=== PATIENT | female | born 1995 | race Caucasian/White ===

== ENCOUNTER 2017-03-06 21:17 | Emergency (ER) | payer MEDICAID ==
[~2017-03-06] VITALS: Ht 170.2 cm; Wt 99.8 kg
[2017-03-06] MEDS ORDERED: SODIUM BICARBONATE 8.4% INJ 50ML SYRINGE ONE (21:18)
[2017-03-06 21:19] VITALS: BP 78/28
[2017-03-06] MEDS ORDERED: DEXAMETHASONE SOD PHOS 4 MG/1ML SDV INJ ONE (21:19)
[2017-03-06] MEDS ORDERED: EPINEPHrine HCL 1 MG/10 ML SYRG ONE (21:27)
== END 2017-03-06 23:57 | disposition expired ==
LOC: ER 21:17 → EDBD 21:17 → ER 23:57
DX: S22.41XA Multiple fractures of ribs, right side, initial encounter for closed fracture (principal); I46.8 Cardiac arrest due to other underlying condition; S09.8XXA Other specified injuries of head, initial encounter; T79.7XXA Traumatic subcutaneous emphysema, initial encounter; S42.001A Fracture of unspecified part of right clavicle, initial encounter for closed fracture; S42.002A Fracture of unspecified part of left clavicle, initial encounter for closed fracture; V89.2XXA Person injured in unspecified motor-vehicle accident, traffic, initial encounter; Y93.89 Activity, other specified; Y92.89 Other specified places as the place of occurrence of the external cause; Y99.8 Other external cause status
CPT/HCPCS: 31500; 71010; 92950; 99285; J0171; J1100